=== PATIENT | male | born 1945 | race Caucasian/White ===

== ENCOUNTER 2019-11-27 09:34 | Emergency (ER) | payer MEDICARE ==
--- NOTE | 2019-11-27 10:33 | ED ---
Extremity Problem HPI - General Chief complaint: Extremity Problem,Nontraumatic Stated complaint: shoulder/arm/hip pain Time Seen by Provider: 11/27/19 10:00 Source: patient Mode of arrival: ambulatory Limitations: no limitations - History of Present Illness Initial comments: Patient is a 74-year-old male presenting to the emergency Department with comp laints of bilateral shoulder pain has been increasing over the past month. He denies any injuries or trauma. He was evaluated by his PCP, x-rays performed, they revealed arthritis. Patient was given a steroid dosepak which he has since finished. He states he also tried Tylenol arthritis but states it is not helping. He denies any fever, chills, nausea, vomiting, chest pain, shortness of breath. He states he is also having some bilateral hip pain which has been ongoing for years. He does have an appointment with Dr. Boyer in December. He has no other complaints at this time. Upon arrival to the ER his vitals are stable. - Related Data Home Medications Medication Instructions Recorded Confirmed Atorvastatin Calcium [Lipitor] 20 mg PO HS 11/27/19 11/27/19 Diltiazem HCl [Diltiazem HCl 24Hr 360 mg PO DAILY 11/27/19 11/27/19 ER] Latanoprost/Pf [Latanoprost 0.005% 1 drop LEFT EYE BID 11/27/19 11/27/19 Eye Drop] Lisinopril 20 mg PO DAILY 11/27/19 11/27/19 Omeprazole [PriLOSEC] 20 mg PO DAILY 11/27/19 11/27/19 metFORMIN HCL 500 mg PO BID 11/27/19 11/27/19 Allergies Allergy/AdvReac Type Severity Reaction Status Date / Time No Known Allergies Allergy Verified 11/27/19 11:57 Review of Systems ROS Statement: Those systems with pertinent positive or pertinent negative responses have been documented in the HPI. ROS Other: All systems not noted in ROS Statement are negative. Past Medical History Past Medical History: Diabetes Mellitus, Hyperlipidemia, Hypertension History of Any Multi-Drug Resistant Organisms: None Reported Past Surgical History: No Surgical Hx Reported Past Psychological History: No Psychological Hx Reported Smoking Status: Never smoker Past Alcohol Use History: None Reported Past Drug Use History: None Reported General Exam - General Exam Comments Initial Comments: GENERAL: Patient is well-developed and well-nourished. Patient is nontoxic and in no acute distress. HEAD: Atraumatic, normocephalic. EYES: Pupils equal round and reactive to light, extraocular movements intact, sclera anicteric, conjunctiva are normal. Eyelids were unremarkable. ENT: TMs normal, nares patent, oropharynx clear without exudates. Moist mucous membranes. NECK: Normal range of motion, supple without lymphadenopathy or JVD. LUNGS: Unlabored respirations. Breath sounds clear to auscultation bilaterally and equal. No wheezes rales or rhonchi. HEART: Regular rate and rhythm without murmurs, rubs or gallops. ABDOMEN: Soft, nontender, normoactive bowel sounds. No guarding, no rebound. No masses appreciated. : Deferred MUSCULOSKELETAL: Patient is unable to flex and abduct his left shoulder, secondary to pain. He does have some mild swelling in his left hand. His neurovascular intact. No si gns of erythema. Patient has full range of motion of his right shoulder. Adequate strength and normal range of motion, no pitting or edema. No clubbing or cyanosis. NEUROLOGICAL: Patient is alert and oriented x 3. Motor and sensory are also intact. Cranial nerves II through XII grossly intact. Normal speech, normal gait. Symmetrical smile. PSYCH: Normal mood, normal affect. SKIN: Warm, Dry, normal turgor, no rashes or lesions noted. Limitations: no limitations Course Vital Signs 11/27/19 09:46 Temperature 97.9 F Pulse Rate 69 Respiratory 16 Rate Blood Pressure 176/79 O2 Sat by Pulse 97 Oximetry Medical Decision Making - Medical Decision Making Patient is a 74-year-old male here for bilateral shoulder pain, increased on the left shoulder. He has limited range of motion of the left shoulder secondary to pain. X-rays a few weeks ago showed no acute abnormalities, mild arthritis. He did have some mild swelling in his left hand, neurovascular intact. I did order ultrasound of the left upper extremity which revealed no evidence of DVT. I discussed these findings with the patient. His findings are consistent with arthritis. I recommended an anti-inflammatory for a few days. Patient did just finish a pack of steroids so I do not want to restart this. They do have an appointment with Dr. Dr. Sanabria a few weeks. He is stable for discharge and and agreement with this plan of care. Return parameters were discussed with the patient and they verbalized understanding. Disposition Clinical Impression: Left shoulder pain Disposition: HOME SELF-CARE Condition: Stable Instructions (If sedation given, give patient instructions): Shoulder Pain (ED) Additional Instructions: Please return to the Emergency Department if symptoms worsen or any other concerns. Use ice or heat to the area. Trial of Aleve for discomfort. Follow up with orthopedics. Is patient prescribed a controlled substance at d/c from ED?: No Referrals: Fabian Romero MD [Primary Care Provider] - 1-2 days Gerardo Sanabria DO [Doctor of Osteopathic Medicine] - 1-2 days
--- NOTE | 2019-11-27 12:37 | US ---
EXAMINATION TYPE: US venous doppler duplex UE LT DATE OF EXAM: 11/27/2019 COMPARISON: NONE CLINICAL HISTORY: pain, swelling. Left arm pain SIDE PERFORMED: Left Left Arm: Negative for DVT Grayscale, color doppler, spectral doppler imaging performed of the deep veins of the left upper extr emity. There is normal flow, compressibility and vascular waveforms. IMPRESSION: No ultrasound evidence for acute DVT in the left upper extremity.
[2019-11-27 13:01] VITALS: BP 152/74; PULSE 59; RESP 17; TEMP 98.8
== END 2019-11-27 13:00 | disposition home or self-care (01) ==
LOC: EC 09:34
DX: M25.512 Pain in left shoulder (principal); M79.89 Other specified soft tissue disorders; I10 Essential (primary) hypertension; E78.5 Hyperlipidemia, unspecified; E11.9 Type 2 diabetes mellitus without complications; Z79.84 Long term (current) use of oral hypoglycemic drugs; Z79.899 Other long term (current) drug therapy
CPT/HCPCS: 99283

== ENCOUNTER 2020-02-21 04:22 | Emergency (ER) | payer MEDICARE ==
[2020-02-21] MEDS ORDERED: ACETAMINOPHEN TAB 500 MG TAB PO STA (04:54)
[2020-02-21] MEDS ORDERED: ETODOLAC 400 MG TAB PO STA (04:54)
[2020-02-21] MEDS ORDERED: MORPHINE SULFATE 4 MG/ML SYRINGE IM STA (04:54)
[2020-02-21] MEDS ORDERED: dexAMETHasone 4 MG TAB PO STA (04:54)
--- NOTE | 2020-02-21 04:58 | ED ---
Extremity Problem HPI - General Chief complaint: Extremity Problem,Nontraumatic Stated complaint: right hip pain Time Seen by Provider: 02/21/20 04:28 Source: patient, RN notes reviewed, old records reviewed Mode of arrival: wheelchair Limitations: no limitations - History of Present Illness Initial comments: This is a 74-year-old male DF for evaluation patient was doing a lot more activity than normal doing a lot of moving moving thinks, patient is in the active process of moving. 12 some right leg pain or pain worse when he moves or walks patient denies trauma no issues of bowels or bladder no fevers MD Complaint: extremity pain -: days(s) Location: right, lower extremity History of Same: Yes -: Yes myalgia, Yes arthralgia Radiation: none Severity scale (1-10): 4 Quality: stabbing, aching Consistency: constant Improves with: immobilization Worsens with: weight bearing, walking Associated Symptoms: denies other symptoms - Related Data Home Medications Medication Instructions Recorded Confirmed Atorvastatin Calcium [Lipitor] 20 mg PO HS 11/27/19 11/27/19 Diltiazem HCl [Diltiazem HCl 24Hr 360 mg PO DAILY 11/27/19 11/27/19 ER] Latanoprost/Pf [Latanoprost 0.005% 1 drop LEFT EYE HS 11/27/19 11/27/19 Eye Drop] Nystatin 100,000Unit/gm Cream 1 applic TOPICAL BID 11/27/19 11/27/19 [Mycostatin Cream] Omeprazole [PriLOSEC] 20 mg PO DAILY 11/27/19 11/27/19 lisinopriL 20 mg PO DAILY 11/27/19 11/27/19 metFORMIN HCL 500 mg PO BID 11/27/19 11/27/19 Allergies Allergy/AdvReac Type Severity Reaction Status Date / Time No Known Allergies Allergy Verified 11/27/19 11:57 Review of Systems ROS Statement: Those systems with pertinent positive or pertinent negative responses have been documented in the HPI. ROS Other: All systems not noted in ROS Statement are negative. Past Medical History Past Medical History: Diabetes Mellitus, Hyperlipidemia, Hypertension History of Any Multi-Drug Resistant Organisms: None Reported Past Surgical History: No Surgical Hx Reported Past Psychological History: No Psychological Hx Reported Smoking Status: Never smoker Past Alcohol Use History: Rare Past Drug Use History: None Reported General Exam Limitations: no limitations General appearance: alert, in no apparent distress Head exam: Present: atraumatic, normocephalic, normal inspection Eye exam: Present: normal appearance, PERRL, EOMI. Absent: scleral icterus, conjunctival injection, periorbital swelling ENT exam: Present: normal exam, mucous membranes moist Neck exam: Present: normal inspection. Absent: tenderness, meningismus, lymphadenopathy Respiratory exam: Present: normal lung sounds bilaterally. Absent: respiratory distress, wheezes, rales, rhonchi, stridor Cardiovascular Exam: Present: regular rate, normal rhythm, normal heart sounds. Absent: systolic murmur, diastolic murmur, rubs, gallop, clicks GI/Abdominal exam: Present: soft, normal bowel sounds. Absent: distended, tenderness, guarding, rebound, rigid Extremities exam: Present: normal inspection, full ROM, normal capillary refill, other (No specific tenderness good range of motion). Absent: tenderness, pedal edema, joint swelling, calf tenderness Back exam: Present: normal inspection Neurological exam: Present: alert, oriented X3, CN II-XII intact Psychiatric exam: Present: normal affect, normal mood Skin exam: Present: warm, dry, intact, normal color. Absent: rash Course Vital Signs 02/21/20 04:25 Temperature 97.5 F L Pulse Rate 66 Respiratory 18 Rate Blood Pressure 197/95 O2 Sat by Pulse 95 Oximetry - Reevaluation(s) Reevaluation #1: 02/21/20 04:57 Medical records reviewed Reevaluation #2: 02/21/20 04:57 Patient is able to ambulate Reevaluation #3: 02/21/20 04:57 Pain is significantly improved Medical Decision Making - Medical Decision Making 74-year-old male DF with right hip pain. Severe. Worsening walks or moves. He does have history of similar events but no specific trauma. Patient can be discharged home Disposition Clinical Impression: Right hip pain Disposition: HOME SELF-CARE Condition: Good Instructions (If sedation given, give patient instructions): Hip Pain (ED) Is patient prescribed a controlled substance at d/c from ED?: No Referrals: Fabian Romero MD [Primary Care Provider] - 1-2 days
[2020-02-21] MEDS ORDERED: ACET/COD 300 MG/30 MG STARTER PACK 6 TAB BTL PO STA (05:56)
[2020-02-21] MEDS ORDERED: IBUPROFEN 600 MG STARTER PACK 4 TAB BTL PO STA (05:56)
[2020-02-21 05:58] VITALS: BP 153/79; PULSE 70; RESP 16; TEMP 98
== END 2020-02-21 06:00 | disposition home or self-care (01) ==
LOC: EC 04:22
DX: M25.551 Pain in right hip (principal); E11.9 Type 2 diabetes mellitus without complications; E78.5 Hyperlipidemia, unspecified; I10 Essential (primary) hypertension; Z79.84 Long term (current) use of oral hypoglycemic drugs; Z79.899 Other long term (current) drug therapy
CPT/HCPCS: 96372; 99284; J8540; J2270

== ENCOUNTER → 2023-10-16 | Outpatient (CLI) | payer MEDICARE ==
[2023-10-16 15:34] LABS: African American GFR (CKD) 54 (>60 ml/min/1.73 sqM); Blood Urea Nitrogen 22 mg/dL (9-20); Non-African American GFR(CKD) 47 (>60 ml/min/1.73 sqM)
--- NOTE | 2023-10-26 16:21 | CT ---
EXAMINATION TYPE: CT chest wo/w con CT DLP: 1089.9 mGycm, Automated exposure control for dose reduction was used. DATE OF EXAM: 10/16/2023 4:07 PM COMPARISON: No priors.. CLINICAL INDICATION:Male, 78 years old with history of J84.10 PULMONARY FIBROSIS, UNSPECIFIED; PHH, d ifficulty in breathing for 4 months. History of pulmonary fibrosis. TECHNIQUE: Multiple axial images were obtained through the chest. Sagittal and coronal reformats were created for review. Contrast used:80 cc mL of Isovue 300 without and with IV Contrast (None if empty) Oral contrast used: (None if empty) FINDINGS: LUNGS/ PLEURA: No consolidating pneumonia. Mild fibrosis in the bases. Small patches of early develop ing end-stage honeycombing. AIRWAY: Peripheral, basilar microcystic bronchiectasis. HEART: Enlarged.. Moderately pronounced calcific atherosclerotic coronary artery disease. MEDIASTINUM: No gross evidence of adenopathy. VASCULATURE: No aortic aneurysm. MUSCULOSKELETAL: No acute osseous abnormalities SOFT TISSUES/LYMPH NODES: Unremarkable. LOWER NECK: No significant findings. UPPER ABDOMEN: No significant findings. IMPRESSION: Cystic bronchiectasis or small airways, fibrosis and foci of early, developing end-stage honeycombing lung disease Follow up recommendations for incidental pulmonary nodules, if there are any, are per [employer] or [employer]. [email or web address].org/articles/[email or web address]-[email or web address]?lang=us
== END | disposition home or self-care (01) ==
LOC: RADCTMAIN 14:58
PROVIDERS: ATTEND Internal Medicine Geriatric Medicine
DX: J84.10 Pulmonary fibrosis, unspecified (principal); J98.4 Other disorders of lung
CPT/HCPCS: 82565; 84520; 71270; 36415; Q9967

== ENCOUNTER → 2024-02-08 | Outpatient (CLI) | payer MEDICARE ==
--- NOTE | 2024-02-08 10:56 | XR ---
EXAMINATION TYPE: XR chest 2V DATE OF EXAM: 02/08/2024 COMPARISON: NONE HISTORY: Shortness of breath TECHNIQUE: Frontal and lateral views of the chest are obtained. FINDINGS: Scattered senescent parenchymal changes noted. Hyperinflation compatible with COPD. No evidence for infiltrate. No evidence for atelectasis. Heart size is stable. Mediastinal structures are stable and grossly unremarkable. No evidence for hilar prominence. Degenerative changes dorsal spine. IMPRESSION: 1. No evidence for acute pulmonary disease. [facility], , 02/08/2024 10:53 AM
== END | disposition home or self-care (01) ==
LOC: RADXRMAIN 10:26
PROVIDERS: ATTEND Internal Medicine Geriatric Medicine
DX: J44.9 Chronic obstructive pulmonary disease, unspecified (principal); J84.10 Pulmonary fibrosis, unspecified
CPT/HCPCS: 71046